=== PATIENT | male | born 1980 | race Asian ===

== ENCOUNTER 2023-11-20 13:17 | Emergency (ER) | payer BC, SELFPAY ==
--- NOTE | ~2023-11-20 | XR_ITS ---
EXAMINATION: XR RIBS, RIGHT CLINICAL INFORMATION: Fall on Sunday. Tenderness laterally. COMPARISON: None available. TECHNIQUE: 3 views of the right ribs were obtained. Chest PA 1 view FINDINGS: Lungs are clear. No consolidation, pneumothorax, or pleural effusion. The cardiomediastinal silhouette and pulmonary vasculature are normal. Osseous structures are unremarkable. Ribs are intact. No fractures are identified. XR/XR ribs RT min 3V w CXR1V IMPRESSION: Unremarkable chest exam and right rib exam.
[2023-11-20 13:22] VITALS: BP 164/106; PULSE 78; RESP 16; TEMP 36.8; O2SAT 100; BMI 24.4
--- NOTE | 2023-11-20 13:22 | ED_ITS ---
HPI - General Adult General Chief complaint: Extremity Injury, Upper Stated complaint: Fell 2 days ago - rib pain Time Seen by Provider: 11/20/23 13:33 Source: patient and RN notes reviewed Mode of arrival: ambulatory Limitations: no limitations History of Present Illness HPI narrative: This is a 43-year-old male presenting to the emergency department with complaints of right-sided rib pain status post mechanical fall which occurred 2 days ago. Patient states that he accidentally slipped on a puddle of water and landing onto his right side, striking the corner of a table. He immediately had pain. He denies hitting his head or loss of consciousness. Patient states that he sneezed today and had increased pain in his right ribs. He has been taking ibuprofen which has provided him with minimal relief. Reports pain is 10 in 10, worsening with palpation along the right ribs. He denies any headaches, dizziness, chest pain, shortness breast, hemoptysis, abdominal pain, nausea, vomiting or diarrhea. No urinary symptoms. He has not on blood thinners. No other complaints or concerns at this time. MD complaint: Right rib pain Onset (ago): day(s) Severity: moderate Quality: sharp Pain Consistency: constant Relieving factors: immobilization and rest Exacerbating factors: movement Treatments prior to arrival: NSAID Related Data Previous Rx's Medication Instructions Recorded acetaminophen 500 mg tablet 500 mg PO Q6H PRN pain #30 tabs 11/20/23 (Tylenol Extra Strength) ibuprofen 600 mg tablet 600 mg PO Q6H PRN pain #30 tabs 11/20/23 lidocaine 5 % topical patch 1 patch topical DAILY #30 ea 11/20/23 (Lidoderm) oxycodone 5 mg tablet 5 mg PO Q6H PRN pain #4 tabs 11/20/23 Allergies Allergy/AdvReac Type Severity Reaction Status Date / Time No Known Allergies Allergy Verified 11/20/23 13:25 Review of Systems Review of Systems: Yes all other systems are reviewed and are negative [facility] Social History Social History Advance Directives: No Physical Exam ED Vital Signs: Vital Signs - 24 hr 11/20/23 13:22 11/20/23 15:51 Temperature 98.2 F Pulse Rate 78 76 Respiratory Rate 16 16 Blood Pressure 164/106 H 155/101 H Pulse Oximetry 100 97 Oxygen Delivery Method Room Air Room Air BMI result Body Mass Index 24.4 Const Other: General: Awake, alert, and oriented X3. No acute distress. HEENT: Normal inspection CVS: Normal heart rate and rhythm. Pulses normal. Respiratory: No respiratory distress, lungs clear to auscultation bilaterally, no wheezes, rales, or rhonchi Skin: Warm, dry, no rashes noted to exposed skin. Normal skin color. Normal skin turgor. Extremities: Normal to inspection MSK: Tenderness to palpation along the right lateral ribs, no crepitus, step- off or deformity. Neuro: Oriented X 3. No motor deficit. No sensory deficit. Course Course Course Narrative: This is a rapid medical exam: Additional HPI, ROS, PE not included below will be deferred to primary provider. Patient is a 43-year-old male presenting to the emergency department with complaint of right sided rib pain. States that he slipped on Sunday, hitting his ribs on the edge of a table. Denies head strike or loss of consciousness. Sneezed today and pain increased significantly. Has been taking ibuprofen. 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 Denies any hemoptysis. Ecchymosis noted to right lateral ribs/flank. Denies hematuria. Plan: x-ray, UA Medications Administered Discontinued Medications Generic Name Dose Route Start Last Admin Trade Name Freq PRN Reason Stop Dose Admin Oxycodone HCl 5 mg 11/20/23 13:29 11/20/23 14:35 Oxycodone Hcl Immed Release 5 Mg Tablet PO 11/20/23 13:30 5 mg ONCE ONE Administration Medical Decision Making Medical Decision Making [facility] Narrative: This is a 43-year-old male presenting to the emergency department for evaluation of right lateral rib pain status post mechanical fall which occurred 2 days ago. Had increased pain after sneezing today. Patient has tenderness palpation along the right lateral ribs, chest x-ray radiology report does not reveal any rib fractures. I am suspicious of a nondisplaced a rib fracture. Treatment remains the same. I discussed findings with patient. Patient given incentive spirometer, also discharged on ibuprofen, Tylenol, also given 4 tablets of oxycodone as he was given good relief. Patient given return precautions, patient understands agrees with plan. Patient stable discharge Differential Diagnosis Differential Diagnoses: The differential diagnosis associated with the presentation includes Rib fracture, pneumothorax, costochondritis, rib contusion Lab Data MDM Lab Attestation statement: I reviewed the patient's lab results. Normal Labs: Lab Results 11/20/23 Range/Units 14:38 Urine Color Yellow Urine Appearance Clear Urine pH 5.5 (5.0-9.0) Ur Specific [place] 1.010 (1.005-1.025) Urine Protein Negative (Neg-Trace) mg/dL Urine Glucose (UA) Negative (Negative) mg/dL Urine Ketones Negative (Negative) mg/dL Urine Blood Negative (Negative) Urine Nitrite Negative (Negative) Ur Leukocyte Esterase Negative (Negative) Independent Interpretation I performed an independent interpretation of an: Plain X-Ray Interpretation: Possible right posterior 8th rib fracture Radiology Impression Discussion of test interpretation with radiology: I have reviewed the ra diologist's reading. Radiologist Impression: EXAMINATION: XR RIBS, RIGHT CLINICAL INFORMATION: Fall on Sunday. Tenderness laterally. COMPARISON: None available. TECHNIQUE: 3 views of the right ribs were obtained. Chest PA 1 view FINDINGS: Lungs are clear. No consolidation, pneumothorax, or pleural effusion. The cardiomediastinal silhouette and pulmonary vasculature are normal. Osseous structures are unremarkable. Ribs are intact. No fractures are identified. XR/XR ribs RT min 3V w CXR1V IMPRESSION: Unremarkable chest exam and right rib exam. Dictated By: Troy Merino MD Prescription Management I considered prescription management with: Pain Medication Discharge Plan Discharge Clinical Impression: Contusion of rib on right side Patient Disposition: Home, Self-Care Instructions: Rib Contusion (ED) Additional Instructions: You were seen in the emergency department due to right rib pain. Your x-ray did not show a rib fracture. Please apply ice the area as needed for pain relief. You may alternate between ibuprofen and Tylenol as needed for pain. Lidoderm patches applied to the area can also provide you with symptomatic relief. Whenever you have to sneeze or cough, a brace yourself in that region to help with support and pain. It is very important for you to continually take deep breaths 2 times per hour to prevent pneumonia. If you develop any new or worsening symptoms including but not limited to worsening pain, shortness of breath, please return for re-evaluation. You may take oxycodone for severe pain only, please be advised that this can cause drowsiness, do not drink alcohol or drive while taking this. You can not having medication refill from the emergency room for this medication. Prescriptions: New ibuprofen 600 mg tablet 600 mg PO Q6H PRN (Reason: pain) Qty: 30 0RF acetaminophen [Tylenol Extra Strength] 500 mg tablet 500 mg PO Q6H PRN (Reason: pain) Qty: 30 0RF lidocaine [Lidoderm] 5 % adhesive patch,medicated 1 patch topical DAILY Qty: 30 0RF Rx Instructions: leave on most painful area for up to 12 hrs oxycodone 5 mg tablet 5 mg PO Q6H PRN (Reason: pain) Qty: 4 0RF Rx Instructions: Partial Fill upon patient request. Stand Alone Forms: Work/School Release Interventions: ED Discharge Assessment Last Done: 11/20/23 16:04 Discharge Date/Time: 11/20/23 16:05
[2023-11-20] MEDS: oxyCODONE HCl Immed Release 5 MG TABLET PO (14:35)
[2023-11-20 14:47] LABS: Appearance Urine Clear; Color Urine Yellow; Glucose Urine UA Negative (Negative); Leukocyte Esterase Urine Negative (Negative); Nitrite Urine Negative (Negative); PH 5.5 (5.0-9.0); Urine Blood Negative (Negative); Urine Ketones Negative (Negative); Urine Protein Negative (Neg-Trace)
[2023-11-20 15:51] VITALS: BP 155/101; PULSE 76; RESP 16; O2SAT 97
== END 2023-11-20 16:05 | disposition home or self-care (01) ==
PROVIDERS: Registered Nurse Emergency; Emergency Provider Emergency Medicine
DX: S20.211A Contusion of right front wall of thorax, initial encounter (principal); W18.39XA Other fall on same level, initial encounter; Y93.9 Activity, unspecified; Y92.019 Unspecified place in single-family (private) house as the place of occurrence of the external cause; Y99.9 Unspecified external cause status
CPT/HCPCS: 71101; 81003; 94010; 99283

== ENCOUNTER 2023-11-22 12:13 | Emergency (ER) | payer BC, SELFPAY ==
--- NOTE | ~2023-11-22 | CT_ITS ---
EXAMINATION: CT CHEST WITHOUT CONTRAST CLINICAL INFORMATION: Right-sided rib COMPARISON: Chest and RIBS 11/20/2023 TECHNIQUE: Multidetector volumetric CT imaging of the chest was done. Axial MIP volume rendering provided. Sagittal and coronal reformatted images were obtained. This CT examination was performed using dose optimization techniques as appropriate, variously including the following: *Automated exposure control *Adjustment of mA and/or kV according to patient size (this includes techniques or standardized protocols for targeted exams where dose is matched to indication/reason for exam; i.e. extremities or head) *Use of iterative reconstruction technique DLP: 182 mGy-cm FINDINGS: LUNGS: The lungs are clear with no evidence of inflammation or nodules. MEDIASTINUM: The mediastinum is normal. CORONARY ARTERY CALCIFICATION: None visualized on this study. PLEURA: There is no pleural effusion. No pleural mass or thickening. AXILLA: No lymphadenopathy. UPPER ABDOMEN: Unremarkable. OSSEOUS STRUCTURES: There is a minimally displaced fracture of the right 10th lateral rib. At the time of the prior radiographs a few days ago, this may have been nondisplaced. No other fractures are seen. No pneumothorax. CT/CT chest wo IV con IMPRESSION: Minimally displaced right 10th lateral rib fracture. Fleischner guidelines were followed.
[2023-11-22 12:53] VITALS: BP 135/96; PULSE 77; RESP 19; TEMP 36.6; O2SAT 98; BMI 23.6
--- NOTE | 2023-11-22 12:55 | ED.GENADULT ---
HPI - General Adult General Chief complaint: General Medical Stated complaint: Seen 2 days ago - injury rib cage Time Seen by Provider: 11/22/23 14:10 Source: patient, RN notes reviewed and old records reviewed Mode of arrival: ambulatory Limitations: no limitations History of Present Illness HPI narrative: 43-year-old male presents for evaluation of right chest wall pain. Patient was seen here a few days ago after he slipped on water and hit his right chest wall on a corner of a counter He had x-rays that were negative for fracture and was ultimately discharged home with ibuprofen, Tylenol, lidocaine patches and oxycodone He reports his pain is worse, especially with coughing or sneezing He has pain with lying down Reports pressure applied to the area helps improve his symptoms Related Data Previous Rx's Medication Instructions Recorded acetaminophen 500 mg tablet 500 mg PO Q6H PRN pain #30 tabs 11/20/23 (Tylenol Extra Strength) ibuprofen 600 mg tablet 600 mg PO Q6H PRN pain #30 tabs 11/20/23 lidocaine 5 % topical patch 1 patch topical DAILY #30 ea 11/20/23 (Lidoderm) oxycodone 5 mg tablet 5 mg PO Q6H PRN pain #4 tabs 11/20/23 oxycodone 5 mg tablet 5 mg PO Q6H PRN severe pain (scale 11/22/23 score 7-10) #12 tabs Allergies Allergy/AdvReac Type Severity Reaction Status Date / Time No Known Allergies Allergy Verified 11/22/23 12:53 Review of Systems ENT: Denies sore throat Cardiovascular: Cardiovascular: Reports chest pain and Denies dyspnea Comments: Patient has chest wall pain Respiratory: Respiratory: Reports cough and Denies dyspnea Gastrointestinal: Gastrointestinal: Denies abdominal pain, Denies nausea and Denies vomiting PMFSH Social History Social History Advance Directives: No Physical Exam ED Vital Signs: Vital Signs - 24 hr 11/22/23 12:53 Temperature 98 F Pulse Rate 77 Respiratory Rate 19 Blood Pressure 135/96 H Pulse Oximetry 98 Oxygen Delivery Method Room Air BMI result Body Mass Index 23.6 Const General: healthy appearing, comfortable, no acute distress, alert and awake Nutritional Appearance: well nourished Orientation/consciousness: patient oriented x3 HENMT Head: Yes normocephalic and Yes atraumatic Eyes Eyelids: Yes eyelids normal Conjunctivae: conjunctivae normal Sclerae: sclerae normal Corneas: corneas normal Pupils: Equal, round and reactive pupils present EOM: EOMs intact bilaterally Neck Neck: Yes full ROM Chest Other: Tenderness in the right anterior axillary line at the level of the 9th and 10th ribs. Chest palpation & inspection: no crepitus Resp Effort & Inspection: normal respiratory effort, able to speak in complete sentences and not labored GI Inspection: No distended Palpation (GI): Soft to palpation, not firm, nontender, no guarding and not rigid Skin General skin exam: elasticity normal Neuro General: patient oriented x3 Cranial nerves: Yes Equal, round and reactive pupils present and Yes Bilaterally intact EOM present Cognition (Neuro): normal cognition Extrem Other: Moving all extremities well without any obvious deformities Course Course Course Narrative: RME- 43-year-old male presents for evaluation of right-sided rib pain. He was seen here 2 days ago and had x-rays of the ribs that did not show any fracture. He reports worsening pain today and represents. Plan for CT scan of the chest without contrast Medical Decision Making Medical Decision Making MDM Narrative: Given the patient presents for worsening symptoms, a CT scan chest was ordered to rule out occult fracture. This showed a fracture of the 10th rib with minimal displacement. I discussed these findings with the patient. Vital signs are stable, there is no evidence of visceral organ injury. Patient be given a short course of oxycodone and will follow-up with the PCP Differential Diagnosis Differential Diagnoses: The differential diagnosis associated with the presentation includes Rib fracture Contusion Pneumothorax Flail chest Independent Interpretation I performed an independent interpretation of an: CT Scan (Agree with Radiology interpretation, 1 rib fracture identified at the area of the 10th rib) Radiology Impression Discussion of test interpretation with radiology: I have reviewed the radiologist's reading. (Minimally displaced fracture of the 10th rib) Discharge Plan Discharge Clinical Impression: Fracture of rib Patient Disposition: Home, Self-Care Instructions: Rib Fracture (ED) Additional Instructions: You have 1 rib fracture at rib 10. You may continue using Motrin, Tylenol and lidocaine patches for your pain I sent another prescription for a few days of oxycodone This may make you sleepy, did not drink alcohol or drive after taking it You should take deep breaths 5 times every hour to prevent pneumonia Follow-up with your primary doctor Return for new or worsening symptoms Prescriptions: New oxycodone 5 mg tablet 5 mg PO Q6H PRN (Reason: severe pain (scale score 7-10)) Qty: 12 0RF Rx Instructions: Partial Fill upon patient request. No Action ibuprofen 600 mg tablet 600 mg PO Q6H PRN (Reason: pain) Qty: 30 0RF acetaminophen [Tylenol Extra Strength] 500 mg tablet 500 mg PO Q6H PRN (Reason: pain) Qty: 30 0RF lidocaine [Lidoderm] 5 % adhesive patch,medicated 1 patch topical DAILY Qty: 30 0RF Rx Instructions: leave on most painful area for up to 12 hrs oxycodone 5 mg tablet 5 mg PO Q6H PRN (Reason: pain) Qty: 4 0RF Rx Instructions: Partial Fill upon patient request. Stand Alone Forms: Work/School Release Interventions: ED Discharge Assessment Last Done: 11/22/23 14:21 Discharge Date/Time: 11/22/23 14:21
== END 2023-11-22 14:21 | disposition home or self-care (01) ==
PROVIDERS: Emergency Provider Emergency Medicine
DX: S22.31XA Fracture of one rib, right side, initial encounter for closed fracture (principal); R07.81 Pleurodynia; R07.89 Other chest pain; M54.6 Pain in thoracic spine; W01.0XXA Fall on same level from slipping, tripping and stumbling without subsequent striking against object, initial encounter; Y93.9 Activity, unspecified; Y92.9 Unspecified place or not applicable; Y99.9 Unspecified external cause status; Z79.899 Other long term (current) drug therapy
CPT/HCPCS: 71250; 99282; 99284

== ENCOUNTER 2023-12-05 13:03 | Outpatient (AMB) | payer BC, SELFPAY ==
--- NOTE | 2023-12-05 13:05 | A.OFFPC_ITS ---
Vital Signs 12/05/23 13:11 Height 5 ft 8 in Weight 151 lb 8 oz BMI 23.0 BP 140/90 H Blood Pressure Location Lt brachial Position Sitting Pulse 97 Pulse Source Pulse Oximeter Pulse Oximetry (%) 97 Oxygen Delivery Method Room Air Intake Visit Reasons: est care/ broken rib/ short stay form Intake Note: Patient is a new patient here to establish care for physical. Transferring care from unknown. Medical records have not been requested and have not received. 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 Accompanied by: Self / Same As Patient Allergies No Known Allergies Allergy (Verified 12/05/23 13:54) Medication List - Last Reconciled 12/05/23 by Oseas Jones MD acetaminophen (Tylenol Extra Strength) 500 mg PO Q6H PRN ibuprofen 600 mg PO Q6H PRN lidocaine 5% (Lidoderm) 1 patch topical DAILY Tobacco use date assessed: 12/05/23 Dental Screening Dental Screen Date: 12/05/23 Did you have a dental visit in the last 12 months?: No Did you have a dental problem in the last 6 months where you did not have access to dental care?: No Was dental information given to patient?: No HPI est care/ broken rib/ short stay form HPI Details 43-year-old male presents to the office wishing to establish his care. He recently fell on ice and fractured his right 12th rib. Patient was seen in the ER twice. Continues to have pain in the right side of the chest. Worse on taking a deep breath. 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 Patient is upset due to the pain and loss of income. COUNTS INCLUDE 234 BEDS AT THE [facility] Surgical History (Updated 12/05/23 @ 13:18 by ALFREDO Howard) No pertinent past surgical history Social History (Updated 12/05/23 @ 13:19 by ALFREDO Howard) Housing: House Alcohol intake: current Alcohol intake frequency: holidays/special occasions only Patient Tobacco Use Status: Never used Tobacco e-Cigarette/Vaping Use: Never Used Second Hand Smoke Exposure: No service: No Current occupational status: employed Cognitive needs: No Hearing needs: No Vision needs: No Questionnaire PHQ-9 Over the last 2 weeks, how often have you been bothered by any of the following problems? 1. Little interest or pleasure in doing things: not at all 2. Feeling down, depressed, or hopeless: not at all 4. Feeling tired or having little energy: not at all 5. Poor appetite or overeating: not at all 6. Feeling bad about yourself - or that you are a failure or have let yourself or your family down: not at all 7. Trouble concentrating on things, such as reading the newspaper or watching television: not at all 8. Moving or speaking so slowly that other people could have noticed. Or the opposite - being so fidgety or restless that you have been moving around a lot more than usual: not at all 9. Thoughts that you would be better off or of hurting yourself in some way: not at all Depression Screening Interpretation: Negative Depression Screening Done: Yes Source: Developed by Drs. Robert Barahona, Halina Llanes, Rigoberto Bolton and colleagues, with an educational susannah from [employer]. Thrive Questionnaire Date Thrive assessed: 12/05/23 I am a: Patient What is your living situation today?: I have a steady place to live Within the past 12 months, did the food you bought not last and you didn't have the money to get more?: Never true Within the past 12 months, did you worry whether your food would run out before you got money to buy more?: Never true Do you have trouble paying for medicines?: No Do you have trouble getting transportation to medical appointments?: No Do you have trouble paying your heating and electricity bill?: No Do you have trouble taking care of your child, family member or friend?: No Do you have trouble with day-to-day activities such as bathing, preparing meals, shopping, managing finances, etc.?: No Are you currently unemployed and looking for a job?: No Are you interested in more education?: No Currently or been in a relationship where the following occur: no concerns reported THRIVE Score: 0 AUDIT C Alcohol Use Questionnaire (AUDIT-C) 1. How often do you have a drink containing alcohol?: Monthly or less 2. How many drinks containing alcohol do you have on a typical day when you are drinking?: 1 or 2 Total Score: 1 LALO-7 AMB Questionnaire LALO-7 Date LALO - 7 assessed: 12/05/23 Feeling nervous, anxious, or on edge: 0 = Not at all Not being able to stop or control worryin = Not at all Worrying too much about different things: 0 = Not at all Trouble relaxin = Not at all Being so restless that it is hard to sit still: 0 = Not at all Becoming easily annoyed or irritable: 0 = Not at all Feeling afraid as if something awful might happen: 0 = Not at all Total LALO-7 score (0-4 normal; 5-9 mild; 10-14 moderate; 15-21 severe): 0 Source: Developed by Drs. Robert Barahona, Halina Llanes, Rigoberto Bolton and colleagues, with an educational susannah from [employer]. Physical exam (Primary Care) Vital Signs: Last Vital Signs Pulse 97 12/05/23 13:11 BP 140/90 H 12/05/23 13:11 Pulse Ox 97 12/05/23 13:11 Oxygen Delivery Method Room Air 12/05/23 13:11 BMI result Body Mass Index 23.0 Tobacco/Smoking Status: Tobacco use Status Tobacco use date assessed 12/05/23 12/05/23 13:21 Patient Tobacco Use Status Never used Tobacco 12/05/23 13:21 e-Cigarette/Vaping Use Never Used 12/05/23 13:21 Depression Screening Interpretation: Negative Thrive Assessment: Date of Thrive Assessment Date Thrive assessed 12/05/23 12/05/23 13:21 Currently or been in a relationship where the following occur: no concerns reported Const General: cooperative and healthy appearing Nutritional Appearance: well nourished Orientation/consciousness: patient oriented x3 Limitations: no limitations HENMT Head: Yes normal to inspection Eyes General: appearance normal, both eyes and all related structures Neck Neck: Yes normal visual inspection Chest Chest palpation & inspection: normal palpation of entire chest wall Resp Effort & Inspection: normal respiratory effort Neuro General: patient oriented x3 Assessment and Plan Assessment & Plan (1) Fractured rib: Code(s): S22.39XA - Fracture of one rib, unspecified side, initial encounter for closed fracture Plan: X-ray and CT images reviewed. Short-term disability form filled. Patient was advised to return to the office for a recheck next week. He has been kept out of work till December 12. Coding Level of Care Code New Pt Level 3 (05244) Diagnoses Fractured rib S22.39XA
[2023-12-05 13:11] VITALS: BP 140/90; PULSE 97; O2SAT 97; BMI 23.0
== END 2023-12-05 13:50 | disposition home or self-care (01) ==
PROVIDERS: Visit Provider Internal Medicine
DX: S22.39XA Fracture of one rib, unspecified side, initial encounter for closed fracture (principal)
CPT/HCPCS: 99203

== ENCOUNTER 2023-12-12 09:03 | Outpatient (AMB) | payer BC, MEDICAID, SELFPAY ==
--- NOTE | 2023-12-12 09:07 | A.OFFPC_ITS ---
Vital Signs 12/12/23 09:08 Height 5 ft 8 in Weight 153 lb 8 oz BMI 23.3 BP 110/72 Blood Pressure Location Lt brachial Position Sitting Pulse 71 Pulse Source Pulse Oximeter Pulse Oximetry (%) 97 Oxygen Delivery Method Room Air Intake Visit Reasons: Office visit Intake Note: Patient is here to follow up on Fracture ribs. Test Administrator Required: No Accounts Supervisor: Not Required per policy Accompanied by: Self / Same As Patient Allergies No Known Allergies Allergy (Verified 12/14/23 15:54) Medication List - Last Reconciled 12/14/23 by Oseas Jones MD acetaminophen (Tylenol Extra Strength) 500 mg PO Q6H PRN atorvastatin 10 mg PO BEDTIME ibuprofen 600 mg PO Q6H PRN lidocaine 5% (Lidoderm) 1 patch topical DAILY Tobacco use date assessed: 12/12/23 HPI Office visit HPI Details 43-year-old male presents to the office for a sick visit. Patient is slowly improving and the pain symptoms around the chest are subsiding. He is able to take a deep breath with less discomfort and is using the incentive spirometry every hour. Has been unable to return to work. The work is asking him to go through a physical that includes lifting heavy weights before he can return to work. His short-term disability has also been denied. Patient is unable to ascertain the reason. He does not have a source of income which is adding to his stress. Patient would also like to establish his care here as a primary care patient. He is requesting routine blood work. [facility] Medical History (Updated 12/14/23 @ 16:03 by Oseas Jones MD) Familial hypercholesterolemia Surgical History No pertinent past surgical history Social History Housing: House Alcohol intake: current Alcohol intake frequency: holidays/special occasions only Patient Tobacco Use Status: Never used Tobacco e-Cigarette/Vaping Use: Never Used Second Hand Smoke Exposure: No service: No Current occupational status: employed Cognitive needs: No Hearing needs: No Vision needs: No Questionnaire Thrive Questionnaire Date Thrive assessed: 12/05/23 LALO-7 AMB Questionnaire LALO-7 Date LALO - 7 assessed: 01/31/24 Source: Developed by Drs. Robert Barahona, Halina Llanes, Rigoberto Bolton and colleagues, with an educational susannah from [employer]. Physical exam (Primary Care) Vital Signs: Last Vital Signs Pulse 71 12/12/23 09:08 BP 110/72 12/12/23 09:08 Pulse Ox 97 12/12/23 09:08 Oxygen Delivery Method Room Air 12/12/23 09:08 Care Plan Goal for BP management: Blood pressure is in range. BMI result Body Mass Index 23.3 Tobacco/Smoking Status: Tobacco use Status Tobacco use date assessed 12/12/23 12/12/23 09:13 Patient Tobacco Use Status Never used Tobacco 12/12/23 09:13 e-Cigarette/Vaping Use Never Used 12/12/23 09:13 Thrive Assessment: Date of Thrive Assessment Date Thrive assessed 12/05/23 12/12/23 09:13 Const General: cooperative and healthy appearing Nutritional Appearance: well nourished Orientation/consciousness: patient oriented x3 Limitations: no limitations HENMT Head: Yes normal to inspection Eyes General: appearance normal, both eyes and all related structures Neck Neck: Yes normal visual inspection Chest Other: No visible bruising on the chest. Minimal discomfort on palpation of the ribs on the right side. Chest palpation & inspection: normal palpation of entire chest wall Resp Effort & Inspection: normal respiratory effort Neuro General: patient oriented x3 Assessment and Plan Assessment & Plan (1) Familial hypercholesterolemia: Code(s): E78.01 - Familial hypercholesterolemia Plan: This note is being dictated after the results of the blood work are known. He has markedly elevated LDL. Statins have been started. Will recheck cholesterol in 3 months. (2) Fractured rib: Code(s): S22.39XA - Fracture of one rib, unspecified side, initial encounter for closed fracture Plan: The rib is continuing to heal. To stop anti-inflammatories. I have agreed to fill out any paperwork that he would need. This is regarding his short-term disability. Orders: Orders Complete Blood Count no Diff 12/12/23 R19.7 - Diarrhea, unspecified Lipid Panel 12/12/23 R19.7 - Diarrhea, unspecified Thyroid Stimulating Hormone 12/12/23 R19.7 - Diarrhea, unspecified Basic Metabolic Panel 12/12/23 R19.7 - Diarrhea, unspecified Liver Panel 12/12/23 R19.7 - Diarrhea, unspecified Medications: Refilled acetaminophen (Tylenol Extra Strength) 500 mg PO Q6H PRN 30 tabs 0RF pain ibuprofen 600 mg PO Q6H PRN 30 tabs 0RF pain Coding Level of Care Code Est Pt Level 3 (05079) Diagnoses Familial hypercholesterolemia E78.01 Fractured rib S22.39XA
[2023-12-12 09:08] VITALS: BP 110/72; PULSE 71; O2SAT 97; BMI 23.3
== END 2023-12-12 10:21 | disposition home or self-care (01) ==
PROVIDERS: PCP Internal Medicine; Visit Provider Internal Medicine
DX: E78.01 Familial hypercholesterolemia (principal); S22.39XA Fracture of one rib, unspecified side, initial encounter for closed fracture
CPT/HCPCS: 99213

== ENCOUNTER 2023-12-12 10:34 | Outpatient (REF) | payer BC, MEDICAID, SELFPAY ==
[2023-12-12 10:56] LABS: Hemoglobin 16.3 g/dl (14.0-18.0); Mean Corpuscular Hemoglobin 30.5 pg (27.0-33.0); Mean Corpuscular Volume 89.9 fL (80.0-98.0); Platelet Count 354 X10*3/uL (160-400); Red Blood Count 5.34 X10*6/uL (4.60-5.80); Red Cell Distribution Width 12.4 % (11.0-16.0); White Blood Count 6.8 X10*3/uL (4.8-10.8)
[2023-12-12 11:42] LABS: Alanine Aminotransferase 60 U/L (0-40); Albumin Level 4.5 g/dL (3.5-5.0); Alkaline Phosphatase 65 U/L (39-117); Anion Gap 11 (12-20); Aspartate Amino Transferase 32 U/L (5-37); Bilirubin Direct 0.1 mg/dL (0.0-0.5); Bilirubin Total 0.6 mg/dL (0.0-1.0); Blood Urea Nitrogen 10 mg/dL (9-16); Calcium 10.2 mg/dL (8.4-10.2); Carbon Dioxide 27 mmol/L (22-29); Chloride 104 mmol/L (96-108); Cholesterol 323 mg/dL (<200); Estimated Glomerular Filt Rate > 60; Glucose Random 102 mg/dL (60-115); HDL Cholesterol 62 mg/dL (>40); LDL Cholesterol Calculated 203 mg/dL (<100); Potassium 4.2 mmol/L (3.3-5.1); Sodium 138 mmol/L (135-145); Total Protein 8.3 g/dL (6.5-8.0); Triglycerides 290 mg/dL (<150)
[2023-12-12 11:56] LABS: Thyroid Stimulating Hormone 1.98 uIU/mL (0.32-4.0)
== END 2023-12-12 10:35 | disposition home or self-care (01) ==
LOC: HO.LAB 10:34
PROVIDERS: PCP Internal Medicine; Visit Provider Internal Medicine
DX: R19.7 Diarrhea, unspecified (principal)
CPT/HCPCS: 36415; 80048; 80061; 80076; 84443; 85027

== ENCOUNTER 2024-05-21 10:07 | Outpatient (AMB) | payer OTHER, SELFPAY ==
--- NOTE | 2024-05-21 10:33 | A.OFFPC_ITS ---
Vital Signs 05/21/24 10:34 Height 5 ft 8 in Weight 156 lb BMI 23.7 BP 130/70 Blood Pressure Location Lt brachial Position Sitting Pulse 67 Pulse Source Pulse Oximeter Pulse Oximetry (%) 99 Oxygen Delivery Method Room Air Intake Visit Reasons: Hypercholesterolemia, Fractured rib f/u Intake Note: Patient is here to follow up on Hypercholesterolemia, Fractured Ribs. Requesting for lab order to check cholesterol levels. Director External Communications Required: No Fishing Rod Mechanic: Not Required per policy Accompanied by: Self / Same As Patient Allergies No Known Allergies Allergy (Verified 05/21/24 11:24) Medication List - Last Reconciled 05/21/24 by Oseas Jones MD acetaminophen (Tylenol Extra Strength) 500 mg PO Q6H PRN atorvastatin 10 mg PO BEDTIME ibuprofen 600 mg PO Q6H PRN Tobacco use date assessed: 05/21/24 Dental Screening Dental Screen Date: 12/05/23 HPI Hypercholesterolemia, Fractured rib f/u HPI Details 44-year-old male presents to the office to discuss his chronic medical conditions. Patient ran out of statins a month ago. He was compliant till he had no more medications. Reports no side effects from the medication. Able to function and do all activities of daily living. His prior symptoms of rib pain and chest wall pain has all resolved. Patient is reporting decreased hearing in the right ear. When he listens to music with his airpods, the strength of music is greater in the left ear than the right. Reports no tinnitus or dizziness. Cost of medications is a barrier. Using [nsulin] many times a day without supervision. Administration of [insulin]. [facility] Medical History (Updated 05/21/24 @ 11:22 by Oseas Jones MD) Unspecified hearing loss, right ear Familial hypercholesterolemia Surgical History No pertinent past surgical history Social History Housing: House Alcohol intake: current Alcohol intake frequency: holidays/special occasions only Patient Tobacco Use Status: Never used Tobacco e-Cigarette/Vaping Use: Never Used Second Hand Smoke Exposure: No service: No Current occupational status: employed Cognitive needs: No Hearing needs: No Vision needs: No Questionnaire Thrive Questionnaire Date Thrive assessed: 12/05/23 LALO-7 AMB Questionnaire LALO-7 Date LALO - 7 assessed: 12/05/23 Source: Developed by DrsBonnie Barahona, Halina Llanes, Rigoberto Bolton and colleagues, with an educational susannah from [employer]. Physical exam (Primary Care) Vital Signs: Last Vital Signs Pulse 67 05/21/24 10:34 BP 130/70 05/21/24 10:34 Pulse Ox 99 05/21/24 10:34 Oxygen Delivery Method Room Air 05/21/24 10:34 BMI result Body Mass Index 23.7 Tobacco/Smoking Status: Tobacco use Status Tobacco use date assessed 05/21/24 05/21/24 10:43 Patient Tobacco Use Status Never used Tobacco 05/21/24 10:43 e-Cigarette/Vaping Use Never Used 05/21/24 10:43 Thrive Assessment: Date of Thrive Assessment Date Thrive assessed 12/05/23 05/21/24 10:43 Const General: cooperative and healthy appearing Nutritional Appearance: well nourished Orientation/consciousness: patient oriented x3 Limitations: no limitations HENMT Other: Right ear: No wax seen. Tympanic membrane is normal. Left ear: No vaccine. Tympanic membrane is normal. Head: Yes normal to inspection Eyes General: appearance normal, both eyes and all related structures Neck Neck: Yes normal visual inspection Chest Chest palpation & inspection: normal palpation of entire chest wall Resp Effort & Inspection: normal respiratory effort Neuro General: patient oriented x3 Assessment and Plan Assessment & Plan (1) Familial hypercholesterolemia: Code(s): E78.01 - Familial hypercholesterolemia Plan: Patient was advised to restart the statins. To get fasting blood work in 1 month. Will call with results. (2) Unspecified hearing loss, right ear: Code(s): H91.91 - Unspecified hearing loss, right ear Plan: An audiology testing has been requested. Orders: Orders Complete Blood Count no Diff Today E78.01 - Familial hypercholesterolemia Liver Panel Today E78.01 - Familial hypercholesterolemia Thyroid Stimulating Hormone Today E78.01 - Familial hypercholesterolemia Basic Metabolic Panel Today E78.01 - Familial hypercholesterolemia Lipid Panel Today E78.01 - Familial hypercholesterolemia UA and rflx microscopic Today E78.01 - Familial hypercholesterolemia Referrals Audiology Referral H91.90 - Unspecified hearing loss, unspecified ear Medications: Refilled atorvastatin 10 mg PO BEDTIME 90 tabs 1RF Coding Level of Care Code Est Pt Level 4 (82752) Complex EM visit Add On G2211 Diagnoses Familial hypercholesterolemia E78.01 Unspecified hearing loss, right ear H91.91
[2024-05-21 10:34] VITALS: BP 130/70; PULSE 67; O2SAT 99; BMI 23.7
== END 2024-05-21 11:33 | disposition home or self-care (01) ==
PROVIDERS: PCP Internal Medicine; Visit Provider Internal Medicine
DX: E78.01 Familial hypercholesterolemia (principal); H91.91 Unspecified hearing loss, right ear
CPT/HCPCS: 99214; G2211

== ENCOUNTER 2024-06-06 12:38 | Outpatient (REF) | payer OTHER, SELFPAY | END 2024-06-06 12:39 | disposition home or self-care (01) | LOC: HO.SH 12:38 | PROVIDERS: Visit Provider Internal Medicine | DX: Z01.118 Encounter for examination of ears and hearing with other abnormal findings (principal); H90.3 Sensorineural hearing loss, bilateral | CPT/HCPCS: 92557; 92567 ==